=== PATIENT | female | born 1995 | race American Indian/Alaskan Native ===

== ENCOUNTER 2022-01-19 17:17 | Emergency (ER) | payer MEDICAID ==
[2022-01-19 19:23] VITALS: BP 117/76
[2022-01-19 20:27] LABS: Bilirubin,Urine NEG (Negative); Blood,Urine NEG (Negative); Color,Urine Straw (Yellow); Protein,Urine <15 mg/dL mg/dL (Negative); RBC,Urine < 1.0 /HPF (0.0-6.0)
[2022-01-19 20:49] LABS: WBC,Urine < 1.0 /HPF (0.0-6.0)
== END 2022-01-19 21:00 | disposition left against medical advice (07) ==
LOC: ED 17:17
DX: R10.0 Acute abdomen (principal); Z53.21 Procedure and treatment not carried out due to patient leaving prior to being seen by health care provider
CPT/HCPCS: 81001

== ENCOUNTER 2022-01-30 20:32 | Emergency (ER) | payer MEDICARE ==
[2022-01-30 20:36] VITALS: BP 122/83
== END 2022-01-30 23:07 | disposition left against medical advice (07) ==
LOC: ED 20:32
DX: R73.9 Hyperglycemia, unspecified (principal); Z53.21 Procedure and treatment not carried out due to patient leaving prior to being seen by health care provider

== ENCOUNTER 2022-01-31 13:50 | Emergency (ER) | payer MEDICARE ==
[2022-01-31] MEDS ORDERED: SODIUM CHLORIDE 0.9% 1000 ML 1,000 ML IV ONE (14:13)
[2022-01-31] MEDS ORDERED: ONDANSETRON 4 MG/2 ML INJ IV ONE (14:14)
--- NOTE | 2022-01-31 14:59 | Emergency Department Report ---
HPI - General Chief Complaint: Abdominal Pain Time Seen by Provider: 01/31/22 14:55 - HPI HPI: For the last 12 hours the patient has been experiencing numerous episodes of emesis. Initially was of the food that she ate and then after that has been clear fluids. She is currently not tolerating any oral fluids. The patient is a diabetic that has not had insulin in the last 2 weeks because she ran out. She is also 5 weeks with an LMP 12/26/2021. She reports mild diffuse crampy abdominal pain and denies chest pain diarrhea fever chills or any other associated symptoms. Nothing makes it better or worse. ED Past Medical Hx - Past Medical History Previous Medical History?: Yes Hx Diabetes: Yes - Surgical History Past Surgical History?: No - Family History Family history: no significant - Social History Smoking Status: Never Smoker Substance Use Type: None - Medications Home Medications: Home Medications Medication Instructions Recorded Confirmed Last Taken Type Vit-Fe Fumar-FA [ 1 tab PO QDAY #120 tablet 01/27/22 Unknown Rx Vitamin] Ondansetron [Zofran Odt] 4 mg PO Q8HR PRN #20 tab.rapdis 01/31/22 Unknown Rx ED Review of Systems ROS: Stated complaint: VOMITING Other details as noted in HPI Comment: All other systems reviewed and negative Physical Exam - Physical Exam Vital Signs: Vital Signs 01/31/22 14:06 Temperature 98.0 F Pulse Rate 100 H Respiratory 18 Rate Blood Pressure 103/75 [Right] O2 Sat by Pulse 100 Oximetry Physical Exam: Physical Exam: Constitutional: AAOX3. No acute distress. No diaphoresis. HENT: Normocephalic. Pupils equal and reactive. No throat edema or erythema. Neck: No neck rigidity or tenderness. Cardiovascular: Heart sounds: No murmur. Normal rate and regular rhythm. Pulses: Intact distal pulses. Lungs: No wheezing or rales. Chest wall: No tenderness. Abdominal: No distension. No mass/pulsatile mass. No abdominal tenderness, guarding nor rebound. Musculoskeletal: Normal range of motion. No edema, No calf TTP. Skin: Warm and dry. Neurological: Alert and oriented to person, place, and time. Psychiatric: Mood and affect normal. Normal cognition and memory. Normal judgement. ED Course Vital Signs 01/31/22 14:06 Temperature 98.0 F Pulse Rate 100 H Respiratory 18 Rate Blood Pressure 103/75 [Right] O2 Sat by Pulse 100 Oximetry - Reevaluation(s) Reevaluation #1: 01/31/22 18:24 The patient felt much better after the fluids that we gave her with the Zofran. I told her that this could either be a mild gastritis or sickness from her . I will put her on some Zofran she will return if any other issues arise. ED Medical Decision Making - Lab Data Result diagrams: 01/31/22 16:00 01/31/22 16:00 Critical care attestation.: If time is entered above; I have spent that time in minutes in the direct care of this critically ill patient, excluding procedure time. ED Disposition Clinical Impression: Vomiting, First trimester Disposition: 01 HOME / SELF CARE / HOMELESS Is pt being admited?: No Does the pt Need Aspirin: No Condition: Stable Instructions: Abdominal Pain (ED), Nausea and Vomiting, Adult, First Trimester of , [id number] Prescriptions: Ondansetron [Zofran Odt] 4 mg PO Q8HR PRN #20 tab.rapdis PRN Reason: Nausea Time of Disposition: 18:30 Print Language: STATELESS
[2022-01-31 16:19] LABS: Basophils # (Auto) 0.1 K/mm3 (0.0-0.1); Basophils % (Auto) 0.5 % (0.0-1.8); Eosinophils % (Auto) 0.1 % (0.0-4.3); Lymphocytes % (Auto) 10.3 % (13.4-35.0); Mean Corpuscular HGB Conc 37 % (30-34); Mean Corpuscular Volume 80 fl (79-97); Monocytes # (Auto) 0.7 K/mm3 (0.0-0.8); Monocytes % (Auto) 6.6 % (0.0-7.3); Platelet Count 235 K/mm3 (140-440); Red Blood Count 4.42 M/mm3 (3.65-5.03); Red Cell Distribution Width 13.4 % (13.2-15.2)
[2022-01-31 16:21] LABS: Hematocrit 35.2 % (30.3-42.9)
[2022-01-31 16:38] LABS: Alanine Aminotransferase 6 units/L (7-56); Albumin 3.8 g/dL (3.9-5); Bilirubin,Direct 0.2 mg/dL (0-0.2); Blood Urea Nitrogen 6 mg/dL (7-17); Calcium 8.5 mg/dL (8.4-10.2); Hemolysis Index 25
[2022-01-31 16:45] LABS: BUN/Creatinine Ratio 15
[2022-01-31 19:18] VITALS: BP 118/84
== END 2022-01-31 19:26 | disposition home or self-care (01) ==
LOC: ED 13:50
DX: O21.8 Other vomiting complicating pregnancy (principal); Z3A.01 Less than 8 weeks gestation of pregnancy; E11.9 Type 2 diabetes mellitus without complications
CPT/HCPCS: 36415; 80048; 80076; 82962; 83690; 84702; 85025; 96361; 96374; 99283; J2405; J7030; Q0162

== ENCOUNTER 2022-02-04 12:28 | Emergency (ER) | payer MEDICARE ==
[2022-02-04] MEDS ORDERED: ONDANSETRON 4 MG/2 ML INJ IV ONE (12:43)
[2022-02-04] MEDS ORDERED: MORPHINE 4 MG/1 ML INJ IV ONE (12:43)
[2022-02-04] MEDS ORDERED: SODIUM CHLORIDE 0.9% 1000 ML 1,000 ML IV ONE (12:43)
[2022-02-04] MEDS ORDERED: FAMOTIDINE 20 MG/2 ML INJ IV ONE (12:43)
[2022-02-04] MEDS ORDERED: D5W/0.45% NACL 1,000 ML IV SCH (13:00)
[2022-02-04] MEDS ORDERED: PANTOPRAZOLE 40 MG INJ IV ONE (14:00)
--- NOTE | 2022-02-04 14:01 | Emergency Department Report ---
ED General Adult HPI - General Chief complaint: Chest Pain Stated complaint: 5 WKS , ABD/CP Time Seen by Provider: 02/04/22 12:32 Source: patient, EMS ( EMS documentation not available at time of chart dictation ), RN notes reviewed, old records reviewed Mode of arrival: Stretcher Limitations: No Limitations - History of Present Illness Initial comments: Verbal report received from emergency medical services This patient is a 26-year-old female, who is 1, para 0. She does not have establish outpatient obstetrics care. She has a known history of fibroids. Unclear if she is a diabetic. Patient presents to the ER today with a com plaint of diffuse lower abdominal pain and cramping, associated with nausea and vomiting, questionable unintentional weight loss, and associated chest wall pain which is nonradiating, nonexertional, present for the past few days. Patient recently prescribed Zofran and vitamins. No dysuria. No vaginal bleeding. Had ultrasound here at this facility 8 days ago which did not demonstrate intrauterine . Lower abdominal pain is cramping and throbbing, and increases with palpation. Chest wall pain is anterior, and increases with palpation and does not radiate to the back, arms or neck. Denies exertional shortness of breath, diaphoresis, DVT/PE risk factors. Does not take oral contraceptives -: days(s) Location: chest, abdomen Severity scale (0 -10): 10 Quality: aching Consistency: constant Improves with: rest Worsens with: eating, movement - Related Data Previous Rx's Medication Instructions Recorded Last Taken Type Vit-Fe Fumar-FA [ 1 tab PO QDAY #120 tablet 01/27/22 Unknown Rx Vitamin] Ondansetron [Zofran Odt] 4 mg PO Q8HR PRN #20 tab.rapdis 01/31/22 Unknown Rx Doxylamine Succinate/Vit B6 1 each PO QHS PRN #30 tablet. 02/04/22 Unknown Rx [Renea Joseph 10-10 mg Tablet] Perfecto Root [Perfecto] 250 mg PO QID PRN #30 capsule 02/04/22 Unknown Rx Vit-Fe Fumar-FA [ 1 tab PO QDAY #30 tablet 02/04/22 Unknown Rx Vitamin] Promethazine HCl [Phenergan SUPPOS] 25 mg RC Q6HR PRN #15 tab 02/04/22 Unknown Rx Allergies Allergy/AdvReac Type Severity Reaction Status Date / Time No Known Allergies Allergy Verified 02/04/22 12:30 ED Review of Systems ROS: Stated complaint: 5 WKS , ABD/CP Other details as noted in HPI Constitutional: malaise. denies: fever Eyes: denies: eye discharge ENT: denies: epistaxis Respiratory: denies: cough Cardiovascular: chest pain (Anterior chest wall pain) Gastrointestinal: abdominal pain, nausea, vomiting. denies: diarrhea Genitourinary: denies: dysuria Musculoskeletal: arthralgia, myalgia Neurological: weakness Psychiatric: anxiety ED Past Medical Hx - Past Medical History Hx Diabetes: Yes - Social History Smoking Status: Never Smoker Substance Use Type: None - Medications Home Medications: Home Medications Medication Instructions Recorded Confirmed Last Taken Type Vit-Fe Fumar-FA [ 1 tab PO QDAY #120 tablet 01/27/22 Unknown Rx Vitamin] Ondansetron [Zofran Odt] 4 mg PO Q8HR PRN #20 tab.rapdis 01/31/22 Unknown Rx Doxylamine Succinate/Vit B6 1 each PO QHS PRN #30 tablet. 02/04/22 Unknown Rx [Renea Joseph 10-10 mg Tablet] Perfecto Root [Perfecto] 250 mg PO QID PRN #30 capsule 02/04/22 Unknown Rx Vit-Fe Fumar-FA [ 1 tab PO QDAY #30 tablet 02/04/22 Unknown Rx Vitamin] Promethazine HCl [Phenergan SUPPOS] 25 mg RC Q6HR PRN #15 tab 02/04/22 Unknown Rx ED Physical Exam - General Limitations: No Limitations General appearance: alert, in no apparent distress - Head Head exam: Present: atraumatic, normocephalic - Eye Eye exam: Present: normal appearance, EOMI. Absent: nystagmus - ENT ENT exam: Present: normal exam, normal orophraynx, mucous membranes moist, normal external ear exam - Neck Neck exam: Present: normal inspection, full ROM. Absent: tenderness, meningismus - Respiratory Respiratory exam: Present: normal lung sounds bilaterally, chest wall tenderness. Absent: respiratory distress, wheezes, rales, rhonchi, stridor, decreased breath sounds - Cardiovascular Cardiovascular Exam: Present: regular rate, normal rhythm, normal heart sounds. Absent: bradycardia, tachycardia, irregular rhythm, systolic murmur, diastolic murmur, rubs, gallop - GI/Abdominal GI/Abdominal exam: Present: soft, tenderness, other (There is mild anterior abdominal wall muscular tenderness. With distraction, there is no right lower quadrant tenderness with deep palpation. There is a negative Rovsing sign. There is negative El sign). Absent: distended, guarding, rebound, rigid, pulsatile mass - Extremities Exam Extremities exam: Present: normal inspection, full ROM, other (2+ pulses noted in the bilateral upper and lower extremities. There is no palpable cord. negative Homans sign. Muscular compartments are soft. The pelvis is stable.). Absent: pedal edema, calf tenderness - Back Exam Back exam: Present: normal inspection, paraspinal tenderness. Absent: tenderness, CVA tenderness (R), CVA tenderness (L), vertebral tenderness - Neurological Exam Neurological exam: Present: alert, oriented X3, other (No facial droop. Tongue midline. Extraocular movements intact bilaterally. Facial sensation intact to light touch in V1, V2, V3 distribution bilaterally. 5 and a 5 strength in 4 extremities. Sensation intact to light touch in 4 extremities.). Absent: motor sensory deficit - Psychiatric Psychiatric exam: Present: anxious - Skin Skin exam: Present: warm, dry, intact, normal color. Absent: rash ED Course Vital Signs 02/04/22 02/04/22 02/04/22 12:29 13:34 13:44 Temperature 98.4 F Pulse Rate 110 H 89 86 Respiratory 18 Rate Blood Pressure Blood Pressure 129/96 [Left] O2 Sat by Pulse 100 100 Oximetry 02/04/22 02/04/22 02/04/22 13:45 14:01 15:09 Temperature Pulse Rate 84 86 83 Respiratory 17 9 L 11 L Rate Blood Pressure 147/102 147/102 Blood Pressure [Left] O2 Sat by Pulse 96 100 99 Oximetry 02/04/22 02/04/22 02/04/22 15:31 16:01 16:31 Temperature Pulse Rate 83 98 H 80 Respiratory 9 L 18 15 Rate Blood Pressure 147/99 126/84 141/90 Blood Pressure [Left] O2 Sat by Pulse 100 100 100 Oximetry 02/04/22 17:01 Temperature Pulse Rate 91 H Respiratory 16 Rate Blood Pressure 140/92 Blood Pressure [Left] O2 Sat by Pulse 100 Oximetry - Reevaluation(s) Reevaluation #1: 02/04/22 14:04 Differential diagnosis, including but not limited to: Hyperemesis gravidarum, nausea and vomiting in , costochondritis, intrauterine , e ctopic , gastroparesis Assessment and plan: 26-year-old female with resolved tachycardia, with reproducible abdominal muscular wall pain, and anterior chest wall pain, in the context of nausea and vomiting for about a week. Suspect nausea and vomiting of , with superimposed musculoskeletal pain. Tachycardia resolved, and the patient is not currently tachycardic, tachypneic or hypoxic, and I find it to be low risk by Wells criteria for pulmonary embolism. While distracted, does not have significant right lower quadrant tenderness, rebound or guarding, doubt acute appendicitis at this time. Treat with appropriate pain medications, obtain appropriate laboratory studies, Repeat pelvic ultrasound, and reassess. Patient is strongly encouraged to closely follow-up with an outpatient [facility] doctor soon as possible to initiate care 02/04/22 14:38 Patient feels improved. Patient is found to have hypomagnesemia and hypokalemia. Extensive discussion had with patient. She is initially declining intracavitary ultrasound. Strongly advised patient to permit acquisition of this ultrasound for better medical care. Ultimately patient agreed. We will replete potassium and magnesium. Care transferred to oncoming ER physician, Dr. Carolann Bentley, to follow up on ultras ound, and reasses, and if no active vomiting, discharge with appropriate follow- up. Extensively discussed with patient need to follow-up with outpatient ase master mechanic to initiate care. Also discussed natural history of nausea and vomiting in . Also discussed natural history of chest wall pain, as well as abdominal wall strain. 02/05/22 20:30 ED Medical Decision Making - Lab Data Result diagrams: 02/04/22 13:47 02/04/22 13:47 Vital Signs 02/04/22 02/04/22 12:29 13:34 Temperature 98.4 F Pulse Rate 110 H 89 Blood Pressure 129/96 [Left] O2 Sat by Pulse 100 Oximetry Respiratory rate 14 to 16 breaths/min Lab Results 02/04/22 02/04/22 02/04/22 Range/Units 13:34 13:34 13:47 WBC 8.8 (4.5-11.0) K/mm3 RBC 4.06 (3.65-5.03) M/mm3 Hgb 11.6 (10.1-14.3) gm/dl Hct 32.5 (30.3-42.9) % MCV 80 (79-97) fl MCH 29 (28-32) pg MCHC 36 H (30-34) % RDW 13.1 L (13.2-15.2) % Plt Count 223 (140-440) K/mm3 Sodium (137-145) mmol/L Potassium (3.6-5.0) mmol/L Chloride (98-107) mmol/L Carbon Dioxide (22-30) mmol/L Anion Gap mmol/L BUN (7-17) mg/dL Creatinine (0.6-1.2) mg/dL Estimated GFR ml/min BUN/Creatinine Ratio % Glucose (65-100) mg/dL Calcium (8.4-10.2) mg/dL Magnesium (1.7-2.3) mg/dL Total Bilirubin (0.1-1.2) mg/dL AST (5-40) units/L ALT (7-56) units/L Alkaline Phosphatase (35-129) units/L Total Creatine Kinase (30-135) units/L Total Protein (6.3-8.2) g/dL Albumin (3.9-5) g/dL Albumin/Globulin Ratio % TSH (0.270-4.200) mlU/mL HCG, Quant (0-4) mIU/mL Urine Color Yellow (Yellow) Urine Turbidity Clear (Clear) Urine pH 7.0 (5.0-7.0) Ur Specific [place] 1.005 (1.003-1.030) Urine Protein <15 mg/dl (Negative) mg/dL Urine Glucose (UA) 50 (Negative) mg/dL Urine Ketones 80 (Negative) mg/dL Urine Blood Neg (Negative) Urine Nitrite Neg (Negative) Urine Bilirubin Neg (Negative) Urine Urobilinogen 4.0 (<2.0) mg/dL Ur Leukocyte Esterase Neg (Negative) Urine WBC (Auto) 2.0 (0.0-6.0) /HPF Urine RBC (Auto) 2.0 (0.0-6.0) /HPF U Epithel Cells (Auto) 17.0 H (0-13.0) /HPF Urine Opiates Screen Negative Urine Methadone Screen Negative Ur Barbiturates Screen Negative Ur Phencyclidine Scrn Negative Ur Amphetamines Screen Negative U Benzodiazepines Scrn Negative Urine Cocaine Screen Negative U Marijuana (THC) Screen Negative Drugs of Abuse Note Disclamer Blood Type Antibody Screen 02/04/22 02/04/22 02/04/22 Range/Units 13:47 13:47 13:47 WBC (4.5-11.0) K/mm3 RBC (3.65-5.03) M/mm3 Hgb (10.1-14.3) gm/dl Hct (30.3-42.9) % MCV (79-97) fl MCH (28-32) pg MCHC (30-34) % RDW (13.2-15.2) % Plt Count (140-440) K/mm3 Sodium 138 (137-145) mmol/L Potassium 2.9 L* D (3.6-5.0) mmol/L Chloride 101.2 (98-107) mmol/L Carbon Dioxide 21 L (22-30) mmol/L Anion Gap 19 mmol/L BUN 4 L (7-17) mg/dL Creatinine 0.4 L (0.6-1.2) mg/dL Estimated GFR > 60 ml/min BUN/Creatinine Ratio 10 % Glucose 155 H (65-100) mg/dL Calcium 8.8 (8.4-10.2) mg/dL Magnesium 1.60 L (1.7-2.3) mg/dL Total Bilirubin 1.00 (0.1-1.2) mg/dL AST 8 (5-40) units/L ALT 6 L (7-56) units/L Alkaline Phosphatase 47 (35-129) units/L Total Creatine Kinase 77 (30-135) units/L Total Protein 6.6 (6.3-8.2) g/dL Albumin 3.7 L (3.9-5) g/dL Albumin/Globulin Ratio 1.3 % TSH 1.170 (0.270-4.200) mlU/mL HCG, Quant (0-4) mIU/mL Urine Color (Yellow) Urine Turbidity (Clear) Urine pH (5.0-7.0) Ur Specific [place] (1.003-1.030) Urine Protein (Negative) mg/dL Urine Glucose (UA) (Negative) mg/dL Urine Ketones (Negative) mg/dL Urine Blood (Negative) Urine Nitrite (Negative) Urine Bilirubin (Negative) Urine Urobilinogen (<2.0) mg/dL Ur Leukocyte Esterase (Negative) Urine WBC (Auto) (0.0-6.0) /HPF Urine RBC (Auto) (0.0-6.0) /HPF U Epithel Cells (Auto) (0-13.0) /HPF Urine Opiates Screen Urine Methadone Screen Ur Barbiturates Screen Ur Phencyclidine Scrn Ur Amphetamines Screen U Benzodiazepines Scrn Urine Cocaine Screen U Marijuana (THC) Screen Drugs of Abuse Note Blood Type A POSITIVE Antibody Screen Negative 02/04/22 Range/Units 13:47 WBC (4.5-11.0) K/mm3 RBC (3.65-5.03) M/mm3 Hgb (10.1-14.3) gm/dl Hct (30.3-42.9) % MCV (79-97) fl MCH (28-32) pg MCHC (30-34) % RDW (13.2-15.2) % Plt Count (140-440) K/mm3 Sodium (137-145) mmol/L Potassium (3.6-5.0) mmol/L Chloride (98-107) mmol/L Carbon Dioxide (22-30) mmol/L Anion Gap mmol/L BUN (7-17) mg/dL Creatinine (0.6-1.2) mg/dL Estimated GFR ml/min BUN/Creatinine Ratio % Glucose (65-100) mg/dL Calcium (8.4-10.2) mg/dL Magnesium (1.7-2.3) mg/dL Total Bilirubin (0.1-1.2) mg/dL AST (5-40) units/L ALT (7-56) units/L Alkaline Phosphatase (35-129) units/L Total Creatine Kinase (30-135) units/L Total Protein (6.3-8.2) g/dL Albumin (3.9-5) g/dL Albumin/Globulin Ratio % TSH (0.270-4.200) mlU/mL HCG, Quant 4123 H (0-4) mIU/mL Urine Color (Yellow) Urine Turbidity (Clear) Urine pH (5.0-7.0) Ur Specific [place] (1.003-1.030) Urine Protein (Negative) mg/dL Urine Glucose (UA) (Negative) mg/dL Urine Ketones (Negative) mg/dL Urine Blood (Negative) Urine Nitrite (Negative) Urine Bilirubin (Negative) Urine Urobilinogen (<2.0) mg/dL Ur Leukocyte Esterase (Negative) Urine WBC (Auto) (0.0-6.0) /HPF Urine RBC (Auto) (0.0-6.0) /HPF U Epithel Cells (Auto) (0-13.0) /HPF Urine Opiates Screen Urine Methadone Screen Ur Barbiturates Screen Ur Phencyclidine Scrn Ur Amphetamines Screen U Benzodiazepines Scrn Urine Cocaine Screen U Marijuana (THC) Screen Drugs of Abuse Note Blood Type Antibody Screen - EKG Data -: EKG Interpreted by Or EKG shows normal: sinus rhythm Rate: normal - EKG Data 02/04/22 14:04 EKG is interpreted at 13: 40 Sinus rhythm, 84 bpm. Normal axis, normal intervals, normal P wave axis, QTC 4 4 6 ms. Abnormal EKG. Not a STEMI - Radiology Data Radiology results: pending, report reviewed, image reviewed OB Ultrasound HISTORY: . TECHNIQUE: Grayscale and color imaging performed. COMPARISON: None FINDINGS: Uterus measures 13.5 x 8.8 x 11.5 cm with diffuse heterogeneity and fibroids measuring up to 4 cm in maximal dimension in the body. The endometrial complex is poorly visualized. No intrauterine gestational sac is identified. Neither ovary was visualized. No free fluid. IMPRESSION: 1. Large fibroid uterus with no internal gestational sac identified. Correlate with beta hCG level. 2. Nonvisualization of the ovaries on this exam. Signer Name: Yannick Martins MD Signed: 01/27/2022 6:25 PM Workstation Name: [id number] [facility] [address] [place], [place] [address] rasound Report Signed Patient: NAYA STARR MR#: [id number] : 1995 Acct:[id number] Age/Sex: 26 / F ADM Date: 02/04/22 Loc: ED Attending Dr: Ordering Physician: ART MCGEE MD Date of Service: 02/04/22 Procedure(s): US OB transvaginal Accession Number(s): [id number] cc: ART MCGEE MD ULTRASOUND OBSTETRIC , FIRST TRIMESTER INDICATION / CLINICAL INFORMATION: with lower abdominal pain. Clinical Gestational Age (GA) in weeks, days: LMP is unknown TECHNIQUE: Transabdominal. Endovaginal COMPARISON: 01/27/2022 FINDINGS: GESTATIONAL SAC: There is a small fluid col lection within the uterine fundus measuring 8 x 7 mm. This would correlate to a 5 week 4 day IUP if truly a gestational sac. This small fluid collection was not seen on the most recent exam of 01/27/2022. At this time there is no visible yolk sac or pole to confirm that this is a gestational sac. YOLK SAC: Not seen at this time. ADNEXA: No significant abnormality. Both ovaries are well-visuali zed and appear unremarkable. FREE FLUID: None. ADDITIONAL FINDINGS: Incidentally noted is a large uterine fibroid measuring nearly 10 x 10 cm, as noted on prior study. IMPRESSION: 1. 9 x 8 x 7 mm round fluid collection within the uterus possibly representing a very early gestational sac. This should be compared with beta hCG levels. 2. 10 cm uterine fundal fibroid. Signer Name: Shwetha Cottrell MD Signed: 02/04/2022 3:32 PM Workstation Name: [id number] Transcribed By: JR Dictated By: Shwetha Cottrell MD Electronically Authenticated By: Shwetha Cottrell MD Signed Date/Time: 02/04/22 1532 DD/ 1527 Critical care attestation.: If time is entered above; I have spent that time in minutes in the direct care of this critically ill patient, excluding procedure time. ED Disposition Clinical Impression: Abdominal wall pain, Chest wall pain, Nausea and vomiting during , Dehydration, Hypomagnesemia, Hypokalemia Disposition: 01 HOME / SELF CARE / HOMELESS Is pt being admited?: No Does the pt Need Aspirin: No Condition: Stable Instructions: Hyperemesis Gravidarum Additional Instructions: Patient most likely has nausea and vomiting /possible hyperemesis gravidarum, with resultant abdominal muscular wall pain/strain, and anterior chest wall pain. Strongly recommended the patient follow-up with an outpatient ase master mechanic as soon as possible to initiate outpatient care. Do not take Motrin, ibuprofen, Naprosyn, Aleve, or aspirin. Patient may take [id number] Tylenol or Pepcid as needed for physical pain. Patient may take the Diclegis medication as needed for nausea and vomiting, accompanied by perfecto tablets. For intractable nausea and vomiting not relieved by these medications, patient may take Zofran as a rescue medication, which was previously prescribed, or Phenergan suppository. Please return to the emergency room right away with new pain, worsened pain, migration of pain, projectile vomiting, change in mental status, confusion, inability tolerate liquid feeds, new, worsened or different symptoms not present on the initial emergency room evaluation Patient is found to have low magnesium and low potassium levels. Patient is encouraged to consume foods that are high in magnesium and potassium, such as banana, avocado, or potato. Prescriptions: Doxylamine Succinate/Vit B6 [Diclegis Dr 10-10 mg Tablet] 1 each PO QHS PRN #30 tablet.dr PRN Reason: Nausea Perfecto Root [Perfecto] 250 mg PO QID PRN #30 capsule PRN Reason: Nausea Promethazine HCl [Phenergan SUPPOS] 25 mg RC Q6HR PRN #15 tab PRN Reason: Nausea Vit-Fe Fumar-FA [ Vitamin] 1 tab PO QDAY #30 tablet Referrals: [facility] [Provider Group] - 3-5 Days [facility] [Provider Group] - 3-5 Days [facility] [Provider Group] - 3-5 Days [facility] [Provider Group] - 3-5 Days Forms: Work/School Release Form(ED)
[2022-02-04 14:03] LABS: Bilirubin,Urine NEG (Negative); Blood,Urine NEG (Negative); Color,Urine Yellow (Yellow); Protein,Urine <15 mg/dL mg/dL (Negative)
[2022-02-04 14:07] LABS: Amphetamine Screen,Urine Negative; Benzodiazepines Screen,Urine Negative; Cannabinoid Screen,Urine Negative; Cocaine Screen,Urine Negative; Methadone Screen,Urine Negative; Opiate Screen,Urine Negative
[2022-02-04 14:09] LABS: Hematocrit 32.5 % (30.3-42.9); Hemoglobin 11.6 gm/dl (10.1-14.3); Mean Corpuscular HGB Conc 36 % (30-34); Mean Corpuscular Volume 80 fl (79-97); Platelet Count 223 K/mm3 (140-440); Red Blood Count 4.06 M/mm3 (3.65-5.03); Red Cell Distribution Width 13.1 % (13.2-15.2)
[2022-02-04 14:27] LABS: Alanine Aminotransferase 6 units/L (7-56); Albumin 3.7 g/dL (3.9-5); BUN/Creatinine Ratio 10; Blood Urea Nitrogen 4 mg/dL (7-17); Calcium 8.8 mg/dL (8.4-10.2); Hemolysis Index 2
[2022-02-04] MEDS ORDERED: METOCLOPRAMIDE 10 MG/2 ML INJ IV ONE (14:36)
[2022-02-04] MEDS ORDERED: MAGNESIUM OXIDE 400 MG TAB PO STA (14:36)
[2022-02-04] MEDS ORDERED: POTASSIUM CHLORIDE ER 20 MEQ TAB PO ONE (14:37)
[2022-02-04] MEDS ORDERED: POTASSIUM CHLORIDE 10 MEQ 10 MEQ/100 ML BAG IV SCH (15:00)
--- NOTE | 2022-02-04 15:36 | Ultrasound Report ---
ULTRASOUND OBSTETRIC , FIRST TRIMESTER INDICATION / CLINICAL INFORMATION: with lower abdominal pain. Clinical Gestational Age (GA) in weeks, days: LMP is unknown TECHNIQUE: Transabdominal. Endovaginal COMPARISON: 01/27/2022 FINDINGS: GESTATIONAL SAC: There is a small fluid collection within the uterine fundus measuring 8 x 7 mm. This would correlate to a 5 week 4 day IUP if truly a gestational sac. This small fluid collection was no t seen on the most recent exam of 01/27/2022. At this time there is no visible yolk sac or pole t o confirm that this is a gestational sac. YOLK SAC: Not seen at this time. ADNEXA: No significant abnormality. Both ovaries are well-visualized and appear unremarkable. FREE FLUID: None. ADDITIONAL FINDINGS: Incidentally noted is a large uterine fibroid measuring nearly 10 x 10 cm, as no stacy on prior study. IMPRESSION: 1. 9 x 8 x 7 mm round fluid collection within the uterus possibly representing a very early gestation al sac. This should be compared with beta hCG levels. 2. 10 cm uterine fundal fibroid. Signer Name: Shwetha Cottrell MD Signed: 02/04/2022 3:32 PM Workstation Name: [id number]
[2022-02-04 17:47] VITALS: BP 140/92
--- NOTE | 2022-02-06 14:11 | Electrocardiograph Report ---
[facility] Test Date: 2022-02-04 Test Time: 13:40:40 Pat Name: NAYA STARR Department: Room: Gender: F [employer]ishing [employer]: LONI : 1995 Requested By: ART MCGEE Order Number: [id number] Reading MD: Wayne Boss Measurements Intervals [place] Rate: 85 P: 26 RI: 162 QRS: 42 QRSD: 85 T: 21 QT: 375 QTc: 446 Interpretive Statements Sinus rhythm No previous ECG available for comparison Electronically Signed On 02-06-2022 14:10:52 EDT by Wayne Boss
== END 2022-02-04 17:48 | disposition home or self-care (01) ==
LOC: ED 12:28
DX: O26.891 Other specified pregnancy related conditions, first trimester (principal); R10.9 Unspecified abdominal pain; R07.89 Other chest pain; O21.9 Vomiting of pregnancy, unspecified; O99.281 Endocrine, nutritional and metabolic diseases complicating pregnancy, first trimester; E11.9 Type 2 diabetes mellitus without complications; Z3A.01 Less than 8 weeks gestation of pregnancy
CPT/HCPCS: 36415; 76801; 76817; 80053; 80307; 81001; 82550; 82962; 83735; 84443; 84702; 85027; 86850; 86900; 86901; 93005; 96361; 96365; 96375; 99285; C9113; J2270; J2405; J2765; J3480; J3490; J7030; J7070; 99284

== ENCOUNTER 2022-04-26 18:17 | Emergency (ER) | payer MEDICARE ==
[2022-04-26 19:41] VITALS: BP 92/61
== END 2022-04-27 20:15 | disposition left against medical advice (07) ==
LOC: ED 18:17
DX: M54.9 Dorsalgia, unspecified (principal); I10 Essential (primary) hypertension; Z53.21 Procedure and treatment not carried out due to patient leaving prior to being seen by health care provider
CPT/HCPCS: 82962